=== PATIENT | male | born 1975 | race Caucasian/White ===

== ENCOUNTER 2017-08-25 22:13 | Emergency (ER) | payer OTHER, SELFPAY ==
[2017-08-25 22:14] VITALS: BP 171/106; PULSE 95; RESP 22; TEMP 36.5; O2SAT 97; BMI 29.7
--- NOTE | 2017-08-25 22:32 | CT_ITS ---
CT Abdomen And Pelvis W/O Contrast INDICATION: RT FLANK PAIN. No surgical or medical hx. COMPARISON: None TECHNIQUE: Axial CT imaging of the abdomen and pelvis without contrast. Coronal and sagittal reformatted images. Radiation dose optimization technique applied. FINDINGS: Visualized lung bases are clear. The heart size is normal. The liver, gallbladder, spleen, adrenal glands, and pancreas are unremarkable. The left kidney is unremarkable. The right kidney demonstrates mild hydronephrosis. A 3.5 mm calculus is seen at the right ureterovesicular junction. Mild right-sided hydroureter is noted. Bowel loops are nondistended. The appendix is unremarkable. The urinary bladder appears unremarkable. There is no evidence of free air or free fluid. Osseous structures are age-appropriate. CT/Abdomen/Pelvis without Cont IMPRESSION: 3.5 mm calculus at the right ureterovesicular junction with mild right-sided hydroureter and hydronephrosis. No residual renal calculi identified. Normal appendix. at 2309 Reported and signed by: Rocio Coles MD Electronically Signed: Rocio Coles MD at 23:07 EDT Tel , Service support ,
[2017-08-25 22:40] LABS: Absolute Lymphocyte Count 2.31 X10^3/ul (0.83-4.51); Absolute Neutrophil Count 10.1 X10^3/uL (2.0-7.7); Basophil# 0.02 X10^3/uL; Basophil% 0.1 % (0-1); Eosinophils% 0.7 % (0-5); Hematocrit 45.9 % (40-54); Hemoglobin 15.9 g/dl (13.0-16.5); Lymphocyte # 2.31 X10^3/ul (4.0); Lymphocyte % 16.6 % (19-41); Mean Corp Hgb Conc 34.6 g/gl (32-36); Mean Corpuscular Hgb 29.1 pg (27.0-32.0); Mean Corpuscular Volume 83.9 fL (80-94); Mean Platelet Vol. 9.9 fl (6.2-12.0); Monocyte# 1.37 X10^3/uL; Monocyte% 9.8 % (0-10); Neutrophil # 10.09 X10^3/uL (2.7-7.7); Neutrophil % 72.4 % (47-70); POSITIVE COUNT NO; POSITIVE DIFFERENTIAL NO; POSITIVE MORPHOLOGY NO; Platelet Count 216 K/mm3 (150-450); RBC Distribution Width CV 12.8 % (11.6-14.6); RBC Distribution Width SD 38.9 fl (35.1-43.9); Red Blood Count 5.47 M/mm3 (4.6-6.2); White Blood Count 13.9 K/mm3 (4.4-11.0)
--- NOTE | 2017-08-25 22:40 | ED.VISSUMM ---
- ER Visit Summary Date of Service: 08/25/17 Chief Complaint: [] Flank pain History of Present Illness: The patient is a 42 M [] complaining of sudden onset of right flank pain beginning a few hours ago. Reports nausea and dry heaving. Denies fevers. Denies hematuria. Denies previous history of kidney stones. Reports the pain does radiate down to his testicles. No other complaints at this time. Physical Examination: [] Afebrile, vital signs stable. 42-year-old male no acute distress. Cardiovascular exam is regular rate and rhythm. Lungs are clear to auscultation. Abdomen is soft and nontender. There is mild right CVA tenderness. Remainder of exam is unremarkable. Test Results: [] Labs: Elevated white blood cell count 13.9. BMP normal. UA:Positive for Leuk and WBC 10-25. CT flank: 3.5 mm right sided stone at the UVJ with mild to moderate hydronephrosis. Emergency Department Course and Treatment: [] Patient given intravenous fluids, Phenergan, morphine for symptom relief. On serial exam patient had recurrence of acute severe pain. He was given additional intravenous Phenergan, additional liter normal saline and was given a single dose of 1 mg of Dilaudid. On repeat serial exam he had resolution of symptoms. He was able to pass a p.o. challenge. He was able to urinate several hundred cc's of urine. Treatment Plan: [] Follow-up with PCP and/or urologist. Discharge with prescriptions for Percocet, Phenergan, Flomax, and Bactrim DS. Disposition: [] Discharge, stable. Impression: [] Urolithiasis UTI This note was generated with [employer] dictation software. It may contain incorrect words, spelling, and punctuation that were not noted in review of the chart prior to signing ED Disposition - Plan for ED Patient: Chief Complaint: Flank Pain Referrals: Anil Li MD [Primary Care Provider] -
[2017-08-25] MEDS: 0.9% Normal Saline 1,000 ML 1000 ML IV (22:42)
[2017-08-25] MEDS: proMETHazine 25 MG/ML Syringe 6.25 MG IV ×2 (22:43→23:20)
[2017-08-25] MEDS: Morphine 4 MG/ML Syringe IV (22:43)
--- NOTE | 2017-08-25 22:43 | ED.DCSUM_ITS ---
- ER Visit Summary Date of Service: 08/25/17 Chief Complaint: [] Flank pain History of Present Illness: The patient is a 42 M [] complaining of sudden onset of right flank pain beginning a few hours ago. Reports nausea and dry heaving. Denies fevers. Denies hematuria. Denies previous history of kidney stones. Reports the pain does radiate down to his testicles. No other complaints at this time. Physical Examination: [] Afebrile, vital signs stable. 42-year-old male no acute distress. Cardiovascular exam is regular rate and rhythm. Lungs are clear to auscultation. Abdomen is soft and nontender. There is mild right CVA tenderness. Remainder of exam is unremarkable. Test Results: [] Labs: Elevated white blood cell count 13.9. BMP normal. UA:Positive for Leuk and WBC 10-25. CT flank: 3.5 mm right sided stone at the UVJ with mild to moderate hydronephrosis. Emergency Department Course and Treatment: [] Patient given intravenous fluids, Phenergan, morphine for symptom relief. On serial exam patient had recurrence of acute severe pain. He was given additional intravenous Phenergan, additional liter normal saline and was given a single dose of 1 mg of Dilaudid. On repeat serial exam he had resolution of symptoms. He was able to pass a p.o. challenge. He was able to urinate several hundred cc's of urine. Treatment Plan: [] Follow-up with PCP and/or urologist. Discharge with prescriptions for Percocet , Phenergan, Flomax, and Bactrim DS. Disposition: [] Discharge, stable. Impression: [] Urolithiasis UTI This note was generated with [employer] dictation software. It may contain incorrect words, spelling, and punctuation that were not noted in review of the chart prior to signing ED Disposition - Plan for ED Patient: Chief Complaint: Flank Pain Referrals: Anil Li MD [Primary Care Provider] -
[2017-08-25 22:49] LABS: Anion Gap 7 (5-15); BUN 18 mg/dL (7-18); BUN/Creat Ratio 13.8 RATIO (10-20); Chloride 106 mmol/L (98-107); EST Glomerular Filtration Rate 65 mL/min (>60); Est Glom Filt Rate - Afr Amer 79 mL/min (>60); Estimated Creatinine Clearance 85.36 ml/min; Glucose 94 mg/dL (74-106); Potassium 3.8 mmol/L (3.5-5.1); Sodium Level 139 mmol/L (136-145)
[2017-08-25] MEDS: HYDROmorphone 1 MG/ML Syringe IV (23:20)
[2017-08-25] MEDS: 0.9% Normal Saline 1,000 ML 999 ML IV (23:23)
[2017-08-26 00:18] LABS: Bacteria 0 SEEN /hpf (None Seen)
[2017-08-26 00:30] VITALS: BP 138/72; PULSE 87; RESP 16; O2SAT 97
[2017-08-26 00:55] LABS: Color, Urine Yellow (Yellow); Glucose, Dipstick Normal (Normal); Ketone-Dipstick 5 mg/dl (Negative); Leukocyte Esterase-Dipstick 100 /ul (Negative); Nitrite-Dipstick Negative (Negative); Occult Blood-Urine 150 /ul (Negative); Protein-Dipstick 30 mg/dl (Negative); Urine Bilirubin Dipstick Negative (Negative); Urine Clarity Sl. Cloudy (Clear); Urine Urobilinogen Normal (Normal)
[2017-08-26 01:26] LABS: Amorphous Sediment 1+; Mucous, Urine 1+ /hpf (<or=2+); Red Blood Cells-Urine 0-5 SEEN /hpf (0-5); Squamous Epithelial Cells - UA 0-5 SEEN /hpf (0-5); White Blood Cells 10-25 SEEN /hpf (0-5)
--- NOTE | 2017-08-26 01:36 | ED.DEP ---
ED Disposition - Plan for ED Patient: Disposition: Home or Assisted Living Chief Complaint: Flank Pain Instructions: ED Stone Renal W Colic Prescriptions: Oxycodone HCl/Acetaminophen [Percocet 5/325] 1 tab PO Q4H PRN PRN 4 Days #20 tab PRN Reason: Pain proMETHazine tablet [Phenergan tablet] 25 mg PO Q6H PRN PRN #20 tab PRN Reason: Nausea Tamsulosin HCl [Flomax] 0.4 mg PO DAILY 5 Days #5 cap.er.24h Sulfamethoxazole/Trimethoprim [Bactrim Ds Tablet] 1 ea PO BID #6 tab Referrals: Anil Li MD [Primary Care Provider] -
[2017-08-26 01:43] VITALS: BP 155/82; PULSE 60; RESP 15; O2SAT 96
== END 2017-08-26 01:49 | disposition home or self-care (01) ==
PROVIDERS: Emergency Provider Emergency Medicine; Family Provider Family Medicine; PCP Family Medicine
DX: N13.6 Pyonephrosis (principal)
CPT/HCPCS: 74176; 80048; 81001; 85025; 96361; 96374; 96375; 96376; 99283; J7030; A4216

== ENCOUNTER 2021-10-08 14:16 | Emergency (ER) | payer OTHER, SELFPAY ==
[2021-10-08 14:16] VITALS: TEMP 36.8; BMI 28.0
[2021-10-08 14:25] VITALS: BP 132/87; PULSE 56; RESP 16; TEMP 36.5; O2SAT 97
--- NOTE | 2021-10-08 14:36 | EDS_ITS ---
HPI History of Present Illness Chief Complaint: Back Informant: patient and spouse/S.O. Narrative Narrative: 46-year-old male presenting to the emergency department with back pain. Patient states that a couple of months ago he had a similar pain and saw sports me marcio. He ended up doing physical therapy and things got better. He had thought about getting an MRI but because that had gotten better he did not. 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 He denies any bowel or bladder dysfunction. No fevers. No steroid use or IV drug use. No red flag history. Today the patient went to urgent care where he received a shot of Toradol and a prescription for prednisone. He states that they recommended he come to the emergency room for an emergent MRI. PFSH PFSH Medical History no medical history Home Medications oxycodone-acetaminophen 5 mg-325 mg tablet 1 tab PO Q4H PRN PRN Pain 4 days #20 tabs 08/26/17 [Rx Last Taken 10/08/21] promethazine 25 mg tablet 25 mg PO Q6H PRN PRN Nausea #20 tabs 08/26/17 [Rx Last Taken Unknown] sulfamethoxazole 800 mg-trimethoprim 160 mg tablet 1 ea PO BID #6 tabs 08/26/17 [Rx Last Taken Unknown] tamsulosin 0.4 mg capsule 0.4 mg PO DAILY 5 days ##5 08/26/17 [Rx Last Taken Unknown] oxycodone-acetaminophen 5 mg-325 mg tablet 1 tab PO Q6H PRN PRN pain 5 days #20 TABLETS 10/08/21 [Rx Last Taken Unknown] Allergy/AdvReac Type Severity Reaction Status Date / Time No Known Allergies Allergy Verified 08/25/17 22:16 Social History (Updated 10/08/21 @ 14:[address] Fabian Cedillo DO) current gender identity: male Smoking Status: Never smoker substance use type: does not use ROS ROS ED Constitutional Constitutional ED: Denies chills or weight loss Eyes Eyes: Denies change in vision or diplopia ENT ENT ED: Denies ear pain, rhinorrhea or sore throat Cardiovascular Cardiovascular: Denies chest pain, orthopnea, palpitations or racing heartbeat Respiratory/Chest Respiratory/Chest: Denies cough, dyspnea or orthopnea Gastrointestinal Gastrointestinal: Denies abdominal pain, diarrhea, nausea or vomiting Genitourinary Genitourinary ED: Denies dysuria, hematuria or urinary frequency Musculoskeletal Musculoskeletal: Reports back pain; Denies arthralgias or myalgias Integumentary Denies abscess or rash Neurologic Neurologic: Denies headache(s), paresthesias or weakness Psychiatric Psychiatric: Denies anxiety, depression, suicidal ideation or suicidal thoughts Endocrine Endocrinology: Denies polydipsia, polyphagia or polyuria Allergic/Immunologic Allergic/Immunologic ED: Denies mouth swelling, tongue swelling or urticaria EXAM Physical Exam Const Vital Signs: 10/08/21 14:16 10/08/21 14:25 Temperature 98.3 F 97.7 F L Temperature Source Temporal Temporal Pulse Rate 56 L Respiratory Rate 16 Blood Pressure 132/87 H Blood Pressure Mean 102 Pulse Ox 97 Oxygen Delivery Method Room Air Positive well nourished and well developed General Appearance ED: well developed HEENT Reports normocephalic, head/scalp atraumatic and moist mucous membranes Eyes PERRL and EOMs intact bilaterally Neck no lymphadenopathy, supple and no JVD Resp normal respiratory effort and clear to auscultation bilaterally Cardio regular rate, regular rhythm and no murmurs GI normal to inspection, nondistended, normoactive bowel sounds and non-tender Palpation: soft Back/Spine no CVA tenderness Back/Spine Narrative: Patient has tenderness just inferior to the left SI joint and into the sciatic notch. Piriformis stretching reproduces his pain. Extremity normal to inspection General Extremety ED: Negative for edema General Extremity: Negative for edema Neuro oriented x3 and CN's II-XII intact bilaterally Sensorium / Orientation: alert Motor Exam: strength 5/5 throughout Psych mental status grossly normal Mood & Affect: Negative for depressed or tearful Skin no rashes or lesions noted and no wounds MDM MDM MDM Narrative Medical decision making narrative: It is my medical opinion the patient does not require an emergent MRI. We talked about stretching. Would recommend pain control following up with primary care. Discharge Plan Triage Chief Complaint: Back ED Provider: Fabian Cedillo Dx/Rx/DC Orders Clinical Impression: Sciatica of left side Instructions: ED Sciatica Prescriptions: New oxycodone-acetaminophen [oxycodone-acetaminophen] 5-325 mg tablet 1 tab PO Q6H PRN PRN (Reason: pain) 5 Days Qty: 20 0RF No Action tamsulosin 0.4 MG capsule,extended release 24hr 0.4 mg PO DAILY 5 Days Qty: 5 0RF oxycodone-acetaminophen 1 TABLET tablet 1 tab PO Q4H PRN PRN (Reason: Pain) 4 Days Qty: 20 0RF promethazine 25 MG tablet 25 mg PO Q6H PRN PRN (Reason: Nausea) Qty: 20 0RF sulfamethoxazole-trimethoprim 1 EACH tablet 1 ea PO BID Qty: 6 0RF Primary Care Provider: Anil iL Referrals: Anil Li MD [Primary Care Provider] - 1 Week Disposition Disposition: Home, Self Care
== END 2021-10-08 14:48 | disposition home or self-care (01) ==
PROVIDERS: Emergency Provider Emergency Medicine; PCP Family Medicine; Visit Provider Emergency Medicine
DX: M54.32 Sciatica, left side (principal)
CPT/HCPCS: 99283